=== PATIENT | female | born 1965 | race Caucasian/White ===

== ENCOUNTER → 2018-12-09 | Day surgery (SDC) | payer BC ==
[~2018-12-09] MED LIST: BUPIVACAINE HCL 0.5% INJ 30 ML VIAL INJ ONE; CEFAZOLIN SOD 2 GM/D5W 50ML 50 ML IV ONE; DEXAMETHASONE SOD PHOS INJ 4 MG/ML VIAL ONE; EPHEDRINE SULFATE INJ 50 MG/10 ML SYR ONE; EPINEPHRINE HCL 1:1000 1ML 1 MG/ML AMP ONE; FENTANYL CITRATE/PF 100MCG/2 ML INJ ONE; FISH OIL 1,0001 EAC2; GLYCOPYRROLATE INJ 1MG/ 5 ML SYR ONE; LIDOCAINE HCL 2% LOCAL INJ 5 ML SDV VIAL INJ ONE; METOCLOPRAMIDE HCL 10 MG/2ML VIAL ONE; MIDAZOLAM HCL 2 MG/2 ML VIAL ONE; MULTIVITAMINS1 EAC7; NEOSTIGMINE 5 MG/5ML SYR ONE; ONDANSETRON HCL INJ 2MG/ML 2ML 2 MG/ML VIAL ONE; PROBIOTIC & AC1 EACH; PROPOFOL IV EMULSION 10 MG/ML 20 ML VIAL ONE; ROCURONIUM BROMIDE 10 MG/ML 5ML VIAL ONE; SCOPOLAMINE 1.5 MG PATCH ONE; SEVOFLURANE INHAL SOLN 250 ML PEN BTL ONE; VALTREX500 MG PO; ZYRTEC10 M3
[2018-12-09 16:09] VITALS: BP 117/74
--- NOTE | 2018-12-11 01:41 | Operative Report ---
DATE OF PROCEDURE: 12/09/2018 SURGEON: Bj Flores MD PREOPERATIVE DIAGNOSIS: Left shoulder labral tear. POSTOPERATIVE DIAGNOSES: Left shoulder labral tear, left shoulder rotator cuff tear. OPERATIONS/PROCEDURE PERFORMED: The patient underwent a left shoulder examination under anesthesia, left shoulder arthroscopy, left shoulder debridement of a partial rotator cuff tear as well as debridement of a labral tear. The patient underwent a left shoulder arthroscopic biceps tendinosis, left shoulder arthroscopic rotator cuff reconstruction, and a left shoulder arthroscopic subacromial decompression and acromioplasty. [employer]ER: Nathalie Grace. ANESTHESIA: General endotracheal intubation anesthesia as well as an interscalene block. IV FLUIDS: As per the anesthesia record. COMPLICATIONS: None. BRIEF DISCUSSION OF THE PATIENT'S OPERATIVE PROCEDURE: Ms. Lowery was taken to the operating room, placed in the supine position on the operating table. Following induction of general anesthesia and an interscalene block, the patient's bed was converted to beach chair type position. Examination of the left shoulder demonstrated no gross abnormalities. She had poor passive range of motion of the shoulder joint. There was no evidence of instability. The patient's shoulder and upper extremity were prepped and draped in standard surgical fashion. A standard posterolateral and anterior port was created without difficulty. The scope was placed within the shoulder atraumatically. 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 There were no loose bodies in the shoulder joint. There was a type 2 labral injury with significant displacement of the biceps anchor from the superior rim of the glenoid. A probe was placed in the shoulder joint and examination of the labral tissue demonstrated significant damage to the tissue itself. This was debrided using a shaver. Examination of the rotator cuff tissue demonstrated a partial tearing of the rotator cuff. The shaver was also used to debride this partial rotator cuff injury. The anterior leading edge of the rotator cuff was found to have a near full segment tear. Attention was first turned to the patient's labral injury. Given the degree of damage to the labrum, the decision was to provide the patient a biceps tenodesis. The rotator interval was debrided. The labral tissue was also further debrided. Sutures were shuttled through the rotator interval capturing the biceps tendon. Biceps tendon was then freed from the superior rim of the labrum. The labrum and cut biceps tendon were then debrided to a stable construct. The remainder of the biceps tenodesis was deferred to later in the case. Attention was further turned to the rotator cuff injury. A shaver was used to debride the insertion site for the rotator cuff. The remaining fibers of the rotator tear were elevated from near insertion to the greater tuberosity. The shaver was used to further debride the insertion site to a bleeding bony bed. The shoulder was deflated with sterile normal saline. The scope was transferred to subacromial space. Significant bursal inflammation was encountered. A lateral portal was created with an outside-in technique. The shaver was used to debride the bursa. The rotator cuff injury was easily identified. An anterolateral accessory portal was created with an inside-out technique. The insertion site of the rotator cuff was debrided further. A single double-loaded suture anchor was then inserted into the greater tuberosity of the humerus. The sutures was passed to the rotator cuff tissue and the rotator cuff tissue was then advanced into its normal insertion and tied firmly. This resulted in complete reapproximation of the patient's rotator cuff injury. The suture for the biceps tenodesis was also identified in the rotator interval. These sutures were captured and firmly tied over the rotator interval completing the biceps tenodesis. The coracoacromial ligament was then resected and aggressive acromioplasty was then performed. The shoulder was deflated with sterile normal saline. The portal sites were closed. Sterile dressings were applied and the patient was provided a shoulder immobilizer, awakened and taken to the postanesthesia care unit in stable condition. MD RUBIO Qiu/TRACEY /[id number]
== END | disposition home or self-care (01) ==
LOC: OR 10:21
PROVIDERS: ATTEND Specialist
DX: S43.432A Superior glenoid labrum lesion of left shoulder, initial encounter (principal); M75.112 Incomplete rotator cuff tear or rupture of left shoulder, not specified as traumatic; M94.212 Chondromalacia, left shoulder; M19.90 Unspecified osteoarthritis, unspecified site; R00.1 Bradycardia, unspecified; X58.XXXA Exposure to other specified factors, initial encounter; Z88.8 Allergy status to other drugs, medicaments and biological substances; Z91.041 Radiographic dye allergy status; Z01.810 Encounter for preprocedural cardiovascular examination; Z86.19 Personal history of other infectious and parasitic diseases
CPT/HCPCS: 29826; 29827; 29828; 93005; J0171; J0690; J1100; J2001; J2250; J2405; J2704; J2765; J3490

== ENCOUNTER 2019-04-01 16:00 | Outpatient (RCR) | payer BC ==
[~2019-04-01 16:00] MED LIST changes: -BUPIVACAINE HCL 0.5% INJ 30 ML VIAL INJ ONE; -CEFAZOLIN SOD 2 GM/D5W 50ML 50 ML IV ONE; -DEXAMETHASONE SOD PHOS INJ 4 MG/ML VIAL ONE; -EPHEDRINE SULFATE INJ 50 MG/10 ML SYR ONE; -EPINEPHRINE HCL 1:1000 1ML 1 MG/ML AMP ONE; -FENTANYL CITRATE/PF 100MCG/2 ML INJ ONE; -GLYCOPYRROLATE INJ 1MG/ 5 ML SYR ONE; -LIDOCAINE HCL 2% LOCAL INJ 5 ML SDV VIAL INJ ONE; -METOCLOPRAMIDE HCL 10 MG/2ML VIAL ONE; -MIDAZOLAM HCL 2 MG/2 ML VIAL ONE; -NEOSTIGMINE 5 MG/5ML SYR ONE; -ONDANSETRON HCL INJ 2MG/ML 2ML 2 MG/ML VIAL ONE; -PROPOFOL IV EMULSION 10 MG/ML 20 ML VIAL ONE; -ROCURONIUM BROMIDE 10 MG/ML 5ML VIAL ONE; -SCOPOLAMINE 1.5 MG PATCH ONE; -SEVOFLURANE INHAL SOLN 250 ML PEN BTL ONE
== END 2019-04-08 ==
LOC: PT 16:00
PROVIDERS: ATTEND Specialist
DX: M25.512 Pain in left shoulder (principal); M75.102 Unspecified rotator cuff tear or rupture of left shoulder, not specified as traumatic; M62.81 Muscle weakness (generalized); M25.612 Stiffness of left shoulder, not elsewhere classified
CPT/HCPCS: 97139

== ENCOUNTER 2019-05-08 08:00 | Outpatient (RCR) | payer BC | END 2019-05-09 | LOC: PT 08:00 | PROVIDERS: ATTEND Specialist | DX: M25.512 Pain in left shoulder (principal); M25.612 Stiffness of left shoulder, not elsewhere classified; M62.81 Muscle weakness (generalized) | CPT/HCPCS: 97139 ==

== ENCOUNTER 2019-05-25 10:00 | Outpatient (RCR) | payer BC | END 2019-06-08 | LOC: PT 10:00 | PROVIDERS: ATTEND Specialist | DX: M75.102 Unspecified rotator cuff tear or rupture of left shoulder, not specified as traumatic (principal) | CPT/HCPCS: 97139 ==